=== PATIENT | male | born 1955 | race Two or more races ===

== ENCOUNTER 2016-09-28 10:40 | Emergency (ER) | payer MEDICAID, OTHER ==
[2016-09-28] MEDS ORDERED: IOPAMIDOL 370 (76%) 100 ML VIAL IV ONE ×2 (10:41)
[2016-09-28 12:13] LABS: ABSOLUTE NEUTROPHIL COUNT 3.1 K/mm3 (1.8-7.7); BASO % 0.3 % (0.2-1.0); EOS # 0.3 (0.0-0.5); EOS % 4.8 % (0.9-2.9); HEMATOCRIT 42.9 % (32.0-52.0); HEMOGLOBIN 14.9 gm/l (14.0-18.0); IMM NEUT% 0.2 % (0-1); LYMPH # 2.5 (1.0-4.8); LYMPH % 38.5 % (15-45); MEAN CELL VOLUME 89.6 fl (80.0-94.0); MEAN CORPUSCULAR HEMOGLOBIN 31.1 pg (27.0-31.0); MEAN CORPUSCULAR HGB CONC 34.7 g/dl (33.0-37.0); MEAN PLATELET VOLUME 11.1 fl (7.4-10.4); MONO # 0.5 (0.0-0.8); MONO % 7.7 % (4-12); NEUT % 48.5 % (43-75); PLATELET COUNT 166 K/mm3 (130-400); RED CELL DISTRIBUTION WIDTH 12.3 % (11.5-14.5)
[2016-09-28 12:42] LABS: ALB/GLOB RATIO 1.4 (>1.0); ALBUMIN 4.1 gm/dL (3.5-5.7); CALCIUM 9.3 mg/dL (8.6-10.3)
[2016-09-28 12:55] LABS: THYROID STIMULATING HORMONE 1.15 uIU/ml (0.34-5.60)
--- NOTE | 2016-09-28 13:22 | CT ---
NECK SOFT TISSUE W/ CON: 09/28/2016 12:13 PM CLINICAL INDICATION: Right paratracheal swelling. Question of foreign body. COMPARISON: None. (MR) Sequences Performed: None (CT) Scan Technique: Contiguous axial 3 mm images from the AP window through the orbital meatal line are obtained of the abdomen 5 initial contrast. Sagittal and coronal reformations were also obtained this time. Angled images through the oropharynx were obtained secondary to streak artifact from dental amalgam. Contrast: 80 ml of Isovue-370 contrast administered. FINDINGS: Orbits/Paranasal Sinuses/Skull Base: Scattered fluid is noted within the ethmoid air cells. Mucous retention cyst is present within the right maxillary sinus. There may be some minimal mucosal thickening in the left maxillary sinus. Otherwise normal. Nasopharynx: Normal Suprahyoid Neck: Normal Infrahyoid Neck: There is some asymmetry to the right vocal cord which may relate to debris. Direct visualization may be necessary for complete assessment. Otherwise normal. Thyroid: Normal Thoracic Inlet: Superior left hilar adenopathy on image 103 measures 1.9 x 2 cm. This may represent a more masslike region with possible areas of spiculation and tracking along the left upper lobe bronchus. Subcarinal lymph node on image 108 measures 2.2 x 1 cm. Nodes are enlarged without respect histology. Focal area of airspace opacity is noted along the anterior aspect of the left upper lobe adjacent to the pericardium best seen on image 108. Additionally there is a area of nodular airspace disease interposed between left upper lobe bronchial bifurcation on image 97. This measures approximately 8 mm. 4 mm pulmonary nodule is present on image 106 the right upper lobe. Consideration for chest CT should be made for further assessment. Lymph Nodes: No adenopathy Vascular Structures: Normal Other Findings: No lytic or sclerotic lesions. Spine maintains anatomic alignment. IMPRESSION: No specific cause for the patient's right paratracheal swelling. No evidence of foreign body. Mediastinal and hilar adenopathy with focal areas of nodular airspace disease and nodules within the visualized chest. Consideration for chest CT should be made for further assessment. This could potentially be performed as an outpatient. Asymmetry to the vocal cords as described above. Other incidental findings as above. Findings were called to Dr. Mccrary at approximately 1316 hours on 09/28/2016.
--- NOTE | 2016-09-28 14:30 | CT ---
Exam Type: CHEST W/ CON, ABD/PELVIS W/ CON Date and Time: 09/28/2016 1:32 PM Clinical information: Nodularity and adenopathy seen within the chest on soft tissue neck CT earlier on the same day. Comparison: CT soft tissue neck 09/28/2016 Technique: Contiguous axial 5 mm images of the chest, abdomen and pelvis were obtained after the uneventful IV ministration of 50 mL of Isovue-370. Sagittal and coronal reformations with high resolution lung algorithm images were also obtained at this time. CT DI: 9.7 DLP: 674.5 FINDINGS: LUNG AND LARGE AIRWAYS: Multifocal areas of calcified and noncalcified nodular densities are present. Within the left chest, some of these nodular foci have slight areas of spiculation. For example on axial image 32 there is a 7 mm left upper lobe nodule with areas of spiculation predominantly along the superior most aspect. This is best seen on coronal image 45. On the same image, there are areas of spiculation extending from regions of the sloane. Alia mass involving the left sloane is noted on image 41 measuring 2.5 x 2.1 cm. This does extend along the left upper lobe bronchi, encasing it as noted on coronal image 41. Additionally there is extension along the lingular bronchus with nodular thickening to the bronchial wall as seen on axial image 45. This extends to the area of left upper lobe anterior nodular density as seen on prior CT soft tissue neck. The edges of this density also demonstrate areas of questionable spiculation. This measures approximately 1.9 x 1 cm on image 43. Areas of calcification are also noted within the more inferior and deep aspect. Apical parenchymal and pleural scarring is present on the left. Partially calcified nodular density is noted at the left base on image 65 measuring approximately 1.1 x 0.8 cm. This also demonstrates some amount of atelectasis extending peripherally from in this. There is some suggestion of areas of intralobular septal thickening. For example on coronal image 15 areas of thickened septa are present. Calcified nodule is present within the right middle lobe on image 60 measuring 5 mm. Noncalcified right upper lobe nodule as seen on prior CT soft tissue neck measuring 4 mm is identified on image 26. PLEURA: within normal limits. VESSELS: Normal HEART: normal size. No pericardial effusion. MEDIASTINUM AND SLOANE: within normal limits. CHEST WALL AND LOWER NECK: within normal limits. ADENOPATHY: Masslike adenopathy is identified along the left hilum on image 41 measuring 2.5 x 2.1 cm as noted on prior study. Right hilar node on image 45 measures 2.1 x 1.2 cm. Subcarinal node on image 47 measures 2.6 x 1 1 cm. Calcified lymph nodes are present as well relating to the sequela of prior granulomatous disease. ABDOMEN: LIVER: Calcification within the inferior liver is identified on image 121 corresponding to the patient's known granulomatous disease. BILE DUCTS: normal caliber. GALLBLADDER: No calcified gallstones. Normal caliber wall. PANCREAS: within normal limits. SPLEEN: within normal limits. ADRENALS: within normal limits. KIDNEYS: Excretion of contrast is noted from prior radiographic procedure earlier on the same day. PELVIS: REPRODUCTIVE ORGANS: no pelvic masses. Prostate abuts and deforms the bladder base. URETERS: within normal limits. BLADDER: Contrast filled from recent radiographic procedure. BOWEL: Normal caliber. Appendix is normal. Diverticulosis is minimally present without diverticulitis or abscess formation. MESENTERIC LYMPH NODES: No enlarged mesenteric lymph nodes. PERITONEUM: no ascites or free air, no fluid collection. VESSELS: within normal limits RETROPERITONEUM: within normal limits. ABDOMINAL WALL: within normal limits. BONES: within normal limits. Spine maintains anatomic alignment with perhaps some slight anterolisthesis of L5 on S1. IMPRESSION: Masslike appearance to left hilar adenopathy with some subtle areas of spiculation extending from the left hilum. Additionally there are multiple other areas of nodular densities throughout the left lung with subtle areas of possible spiculation. Several areas demonstrate partial calcification. Hilar and mediastinal adenopathy is present. Some areas of abnormality demonstrate partial or full calcification, including lymph nodes. There is also possible intralobular septal thickening. Findings may relate to active granulomatous disease superimposed upon sequela of prior granulomatous disease. Findings are also somewhat worrisome for malignancy, without evidence of metastasis. Consideration for transbronchial biopsy could be made in the correct clinical context. PET/CT could also be helpful. At the very least the patient should have a follow-up CT chest. Incidental findings as above. Findings were called to images Department at approximately 1427 hours on 09/28/2016.
== END 2016-09-28 15:48 | disposition home or self-care (01) ==
LOC: ED 10:40
DX: R91.8 Other nonspecific abnormal finding of lung field (principal); R22.1 Localized swelling, mass and lump, neck
CPT/HCPCS: 85025; 80053; 84439; 84443; 74177; 70491; 71260; 99284 ×2; Q9967 ×2